=== PATIENT | male | born 1975 | race Caucasian/White ===

== ENCOUNTER 2017-11-16 11:32 | Outpatient (CLI) | payer OTHER | END 2017-11-16 15:23 | disposition home or self-care (01) | LOC: RAD 11:32 | DX: M25.561 Pain in right knee (principal); M25.562 Pain in left knee; M25.571 Pain in right ankle and joints of right foot ==

== ENCOUNTER 2020-01-01 06:54 | Day surgery (SDC) | payer OTHER | END 2020-01-01 12:50 | disposition home or self-care (01) | LOC: AMB-ENDOS 06:54 | DX: K29.50 Unspecified chronic gastritis without bleeding (principal); K44.9 Diaphragmatic hernia without obstruction or gangrene ==